=== PATIENT | female | born 1950 | race Caucasian/White ===

== ENCOUNTER 2023-03-25 10:20 | Emergency (ER) | payer OTHER, MEDICARE ==
[~2023-03-25] VITALS: Ht 165.1 cm; Wt 71.7 kg
[2023-03-25 10:25] VITALS: BP_SYST 131
[2023-03-25] MEDS ORDERED: NAPR-1172 PO (10:54)
[2023-03-25 11:09] VITALS: BP_SYST 131
== END 2023-03-25 11:09 | disposition home or self-care (01) ==
LOC: SED 10:20
DX: S93.401A Sprain of unspecified ligament of right ankle, initial encounter (principal); Z88.0 Allergy status to penicillin; Z79.899 Other long term (current) drug therapy; W09.8XXA Fall on or from other playground equipment, initial encounter; Y93.89 Activity, other specified; Y92.89 Other specified places as the place of occurrence of the external cause; Y99.8 Other external cause status
CPT/HCPCS: 99283